=== PATIENT | female | born 1995 ===

== ENCOUNTER 2018-04-01 14:46 | Emergency (ER) | payer OTHER ==
[2018-04-01 14:51] VITALS: BP 111/72; PULSE 70; RESP 16; TEMP 98.5; O2SAT 100
[2018-04-01] MEDS ORDERED: Naproxen 500 MG TAB PO ONE ×2 (15:02→15:38)
[2018-04-01] MEDS ORDERED: Tdap Vaccine 0.5 ml Vial (10-64 yrs) IM ONE ×2 (15:03→15:39)
[2018-04-01] MEDS ORDERED: Silver Sulfadiazine 1% CREAM (50 gm) TOP STA ×2 (15:03→16:10)
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
[2018-04-01] MEDS ORDERED: Silver Sulfadiazine 1% CREAM (50 gm) ONE (15:39)
== END 2018-04-01 16:35 | disposition home or self-care (01) ==
LOC: H.ER 14:46
DX: T25.222A Burn of second degree of left foot, initial encounter (principal)